=== PATIENT | female | born 1970 | race Caucasian/White ===

== ENCOUNTER → 2020-06-11 17:08 | Outpatient (CLI) | payer OTHER, SELFPAY ==
--- NOTE | 2020-06-11 17:10 | DI.RAD.S_ITS ---
PROCEDURE: XR HIP W PEL IF DONE LT 2V INDICATIONS: Progressive left hip pain TECHNIQUE: AP pelvis with lateral view(s) of the left hip(s). COMPARISON: None. FINDINGS: Bones: No fractures or dislocations. Pelvic ring appears intact. No suspicious bony lesions. Slight left hip joint space narrowing when compared to that on the right. Soft tissues: The visualized bowel gas pattern is normal. No suspicious soft tissue calcifications. IMPRESSION: No trauma found, there is a slight degree of degenerative osteoarthritic change at the left hip. Dictated by: Ángel Salguero M.D. on 06/12/2020 at 8:34 Approved by: Ángel Salguero M.D. on 06/12/2020 at 8:35
== END ==
PROVIDERS: PCP Family Medicine; Referring Provider Family Medicine; Visit Provider Family Medicine
DX: M25.552 Pain in left hip (principal)
CPT/HCPCS: 73502

== ENCOUNTER → 2022-07-15 15:15 | Outpatient (CLI) | payer OTHER, SELFPAY ==
--- NOTE | 2022-07-15 | DI.RAD.S_ITS ---
PROCEDURE: XR LUMBAR SPINE 2-3V INDICATIONS: low back pain TECHNIQUE: 3 views of the lumbar spine were acquired. COMPARISON: None. FINDINGS: Bones: 5 [id number] vertebrae are present. Grade 1 anterolisthesis of L4 on L5, probably due to facet arthrosis. Mild disc height loss at all levels. Facet arthrosis L3 through S1. Soft tissues: Overlying bowel gas pattern is normal. No suspicious soft tissue calcifications. 2.7 centimeter gallstone. IMPRESSION: Mild, multilevel degenerative disc disease and lower lumbar facet arthrosis. Dictated by: Robbi Cunningham M.D. on 07/15/2022 at 16:42 Approved by: Robbi Cunningham M.D. on 07/15/2022 at 16:43
== END ==
PROVIDERS: PCP Family Medicine; Referring Provider Family Medicine; Visit Provider Family Medicine
DX: M54.9 Dorsalgia, unspecified (principal); M51.36 Other intervertebral disc degeneration, lumbar region; M47.816 Spondylosis without myelopathy or radiculopathy, lumbar region
CPT/HCPCS: 72100